=== PATIENT | female | born 1945 | race Caucasian/White ===

== ENCOUNTER 2016-11-24 11:57 | Outpatient (CLI) | payer MEDICARE, OTHER ==
--- NOTE | 2016-11-24 15:49 | MRI Report ---
EXAM: MRI LUMBAR SPINE WITHOUT CONTRAST EXAM DATE: 11/24/2016 01:17 PM. CLINICAL HISTORY: 71-year-old with low back pain and pain radiating to the bilateral legs COMPARISON: Lumbar radiograph 11/16/2016; CT abdomen and pelvis 01/13/2013. TECHNIQUE: Multiplanar, multisequence T1-weighted and fluid-sensitive sequences of the lumbar spine f rom T12 to S1 without contrast. Other: None. FINDINGS: Spinal Cord: The conus terminates at L1-L2. No signal abnormality in the visualized spinal cord. 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 Alignment: Grade 1 retrolisthesis of L4 on L5 and L5 on S1. Grade 1 anterolisthesis of L3 on L4. Bone Marrow: Five [id number]-ttwoayi lumbar vertebral bodies are assumed. Mild endplate degenerative darío nge, Schmorl's node formation, moderate loss of disk height, and disk desiccation seen at L4-L5 and L 5-S1. The remaining lumbar levels demonstrate minimal endplate degenerative change, Schmorl's node fo rmation, minimal loss of disk height, and disk desiccation. No acute fracture. Minimal endplate edema seen at T12-L1, L4-L5, and L5-S1 that is likely degenerative in nature. No definite marrow replacing lesion. Disk Levels/Facets: T12-L1: Small posterior disk bulge and minimal bilateral arthritic facet disease. No significant spin al canal stenosis or neural foraminal narrowing. L1-L2: Small posterior disk bulge, ligamentum flavum thickening, arthritic facet disease, and promine nt dorsal epidural fat. Minimal spinal canal stenosis. No significant neural foraminal narrowing. L2-L3: Small posterior disk bulge, ligamentum flavum thickening, arthritic facet disease, and promine nt dorsal epidural fat. Minimal spinal canal stenosis. Minimal bilateral neural foraminal narrowing, greater on the left. L3-L4: Small posterior disk bulge, ligamentum flavum thickening, arthritic facet disease, and promine nt dorsal epidural fat. Mild to moderate spinal canal stenosis. Mild bilateral neural foraminal narro wing. L4-L5: Small posterior disk bulge with superimposed central to left paracentral disk protrusion. Liga mentum flavum thickening, arthritic facet disease, and prominent dorsal epidural fat. Moderate to sev ere spinal canal stenosis with effacement of the lateral recesses and mass effect on the traversing l eft L5 nerve root. Mild right and moderate left neural foraminal narrowing. L5-S1: Small central disk protrusion. Bilateral thick facet disease. Effacement of the lateral recess es. Mild bilateral neural foraminal narrowing. Musculature: Normal. No edema or fatty atrophy. Other: Right kidney inferior pole T2 hyperintense lesion measuring up to 2.7 cm (series 701, image 25 ). Finding likely represents renal cysts. Left kidney superior pole intermediate T2 signal intensity lesion measuring up to 1.4 cm (371, image 35) that is increased in size since CT abdomen and pelvis 1 . IMPRESSION: 1. Mild multilevel degenerative changes greatest at L4-L5 and L5-S1. L3-L4: Mild to moderate spinal canal stenosis. Mild bilateral neural foraminal narrowing. L4-L5: Moderate to severe spinal canal stenosis with effacement of the lateral recesses and mass effe ct on the traversing left L5 nerve root. Mild right and moderate left neural foraminal narrowing. L5-S1: Effacement of the lateral recesses. Mild bilateral neural foraminal narrowing. 2. Left kidney superior pole intermediate T2 signal intensity lesion measuring up to 1.4 cm that has increased in size since CT abdomen and pelvis 01/13/2013. Intermediate T2 signal hyperintensity is no t compatible with a simple renal cyst and finding may represent hemorrhagic cyst though other patholo gy is not entirely excluded. Consider CT or MR renal for further evaluation. Comment: The following findings are so common in adults without low back pain that while we report th eir presence, they must be interpreted with caution and in the context of the clinical situation. (Re bhanu Hamilton et al, Spine 2001) Prevalence of findings in patients without low back pain: Disk degeneration (any evidence): 92% Disk desiccation/T2 signal loss: 83% Disk height loss: 56% Disk bulge: 64% Disk protrusion: 32% Annular tear/high intensity zone: 38% [facility] Referring Provider Line: [phone] SITE ID: [id number]
== END 2016-11-24 11:58 | disposition home or self-care (01) ==
LOC: DI 11:57
PROVIDERS: ATTEND Orthopaedic Surgery
DX: M51.27 Other intervertebral disc displacement, lumbosacral region (principal); M47.9 Spondylosis, unspecified; R93.422 Abnormal radiologic findings on diagnostic imaging of left kidney
CPT/HCPCS: 72148

== ENCOUNTER 2017-02-28 11:44 | Outpatient (CLI) | payer MEDICARE, OTHER ==
--- NOTE | 2017-03-07 06:51 | Mammography Report ---
EXAM: Digital bilateral screening mammogram 02/28/2017. CLINICAL INDICATION: A 71-year-old with history of late childbearing, history of benign biopsy, for screening. COMPARISON: 12/2015, 11/2014, 08/2013, 08/2012, 08/2011, 07/2010, 07/2009. TECHNIQUE: Routine CC and MLO projections were obtained of the breasts. FINDINGS: The breasts again demonstrate heterogeneously dense fibroglandular parenchyma bilaterally. Coarse punctate, typically benign calcifications are present. No suspicious masses, clustered microcalcifications, or regions of architectural distortion are identified. IMPRESSION: Benign findings. RECOMMENDATIONS: Routine annual screening unless otherwise clinically indicated. BI-RADS category 2 - Benign findings. STANDARD QUALIFYING STATEMENTS 1. This examination was reviewed with the aid of Computed Aided Detection (CAD). 2. A negative x-ray report should not delay biopsy if a dominant or clinically suspicious mass is present. More than 5% of cancers are not identified by x-ray. 3. Dense breasts may obscure an underlying neoplasm. TD: 03/01/2017 19:56 CARINA
== END 2017-02-28 11:45 | disposition home or self-care (01) ==
LOC: DI.N 11:44
PROVIDERS: ATTEND Nurse Practitioner Gerontology
DX: Z12.31 Encounter for screening mammogram for malignant neoplasm of breast (principal)
CPT/HCPCS: 77067

== ENCOUNTER 2017-03-01 16:44 | Outpatient (CLI) | payer MEDICARE, OTHER ==
--- NOTE | 2017-03-02 10:07 | Ultrasound Report ---
EXAM: LEFT LOWER EXTREMITY VENOUS ULTRASOUND EXAM DATE: 03/01/2017 06:02 PM. CLINICAL HISTORY: Left lower extremity pain. Possible DVT. COMPARISON: None. TECHNIQUE: Real-time sonographic vascular imaging was performed by the manufacturer through the lower extremity utilizing both color-flow and Doppler spectral analysis. Multiple sales representative adding machines static fahad ges were saved for review. FINDINGS: Common Femoral Vein (CFV): Normal. CFV-GSV Junction: Normal. Profunda Femoral Vein (PFV): Normal. Femoral Vein (FV) Prox: Normal. Femoral Vein (FV) Mid: Normal. Femoral Vein (FV) Dist: Normal. Popliteal Vein: Normal. Posterior Tibial Veins: Normal. Peroneal Veins: Normal. Other: No popliteal cyst evident. Possible reactive left inguinal lymph node 1.1 cm short axis. IMPRESSION: 1. No DVT in the left lower extremity. [facility] Referring Provider Line: [phone] SITE ID: [id number]
== END 2017-03-01 16:45 | disposition home or self-care (01) ==
LOC: DI 16:44
PROVIDERS: ATTEND Family Medicine
DX: M79.605 Pain in left leg (principal)

== ENCOUNTER 2017-08-31 08:00 | Outpatient (CLI) | payer MEDICARE, OTHER ==
[2017-08-31 12:54] LABS: CALCIUM 9.2 mg/dL (8.5-10.3); CREATININE 0.9 mg/dL (0.4-1.0)
== END 2017-08-31 08:01 ==
LOC: LAB.N 08:00
PROVIDERS: ATTEND Family Medicine
DX: N28.89 Other specified disorders of kidney and ureter (principal); M48.061 Spinal stenosis, lumbar region without neurogenic claudication
CPT/HCPCS: 36415; 80048

== ENCOUNTER 2017-10-01 14:30 | Outpatient (CLI) | payer MEDICARE, OTHER ==
[2017-10-01] MEDS ORDERED: GADOBUTROL 10 MMOL/10 ML VIAL IVP ONE (15:13)
--- NOTE | 2017-10-02 10:20 | MRI Report ---
Procedure Date: 10/01/2017 Accession Number: [id number] / [id number] Procedure: MRI - Abdomen W/WO CPT Code: FULL RESULT: EXAM: MR ABDOMEN WITH AND WITHOUT CONTRAST (MR KIDNEYS) EXAM DATE: 10/01/2017 02:27 PM. CLINICAL HISTORY: Renal mass. COMPARISON: CT abdomen/pelvis with contrast 01/13/2013. TECHNIQUE: Multiplanar breath-hold T1, T2, and DWI sequences obtained through the kidneys and abdomen on an MR scanner. Images obtained before and after administration of 6 mL Gadavist intravenous contrast. Multiphase sequences obtained through the kidneys. Significant patient motion artifact. FINDINGS: Lung Bases: Unremarkable. Liver: The liver has normal size, morphology and signal. No evidence of mass or biliary dilatation. Gallbladder: The gallbladder is partially distended and appears normal with no wall thickening or stone. Pancreas: The pancreas appears normal with no mass or ductal dilatation. Spleen: The spleen appears normal. Kidneys: Right Kidney: The right kidney measures 8.9 cm in length on coronal series. There are a couple of tiny simple posterior right renal cysts. No suspicious mass or hydronephrosis. Left Kidney: The left kidney measures 8.9 cm in length on coronal series. A 1.3 cm partially exophytic posteromedial left upper renal cyst likely has a small amount of dependent hemorrhage. 2.7 cm left lower renal cyst is likely simple. No suspicious mass. Adrenals: The adrenal glands appear normal. Bowel: The small bowel and colon appear normal with no inflammation or obstruction. Retroperitoneum: The retroperitoneal structures appear normal with no mass or lymphadenopathy. Other: Normal. IMPRESSION: 1. A 1.3 cm posterior left upper renal cyst with small amount of dependent hemorrhage. 2. A 2.7 cm simple left lower renal cyst. 3. No suspicious renal mass. 4. Present exam had patient motion artifacts and was compared to abdominal CT 01/13/2013. If patient has had interval exams, correlation would be advised. [facility]
== END 2017-10-01 14:31 | disposition home or self-care (01) ==
LOC: DI 14:30
PROVIDERS: ATTEND Family Medicine
DX: Q61.02 Congenital multiple renal cysts (principal)
CPT/HCPCS: 74183; A9585

== ENCOUNTER 2017-11-15 08:00 | Outpatient (CLI) | payer MEDICARE, OTHER ==
[2017-11-15 13:37] LABS: BASOPHILS # (AUTO) 0.2 10^3/uL (0.0-0.1); BASOPHILS % (AUTO) 2.6 %; EOSINOPHILS # (AUTO) 0.2 10^3/uL (0.0-0.7); EOSINOPHILS % (AUTO) 3.9 %; HGB - HEMOGLOBIN 14.3 g/dL (12.0-16.0); LYMPHOCYTES # (AUTO) 2.5 10^3/uL (1.5-3.5); LYMPHOCYTES % (AUTO) 41.3 %; MEAN CORPUSCULAR HEMOGLOBIN 31.4 pg (27.0-31.0); MEAN CORPUSCULAR HGB CONC 34.4 g/dL (32.0-36.0); MEAN CORPUSCULAR VOLUME 91.4 fL (81.0-99.0); MEAN PLATELET VOLUME 8.3 fL (7.9-10.8); MONOCYTES # (AUTO) 0.4 10^3/uL (0.0-1.0); NEUTROPHILS # (AUTO) 2.7 10^3/uL (1.5-6.6); NEUTROPHILS % (AUTO) 45.2 %; PLT - PLATELET COUNT 326 10^3/uL (130-450); RED BLOOD COUNT 4.54 10^6/uL (4.20-5.40); RED CELL DISTRIBUTION WIDTH 13.9 % (12.0-15.0)
[2017-11-15 14:04] LABS: ALBUMIN 3.8 g/dL (3.2-5.5); ALBUMIN/GLOBULIN RATIO 1.3 (1.0-2.2); ALKALINE PHOSPHATASE 62 IU/L (42-121); ALT ALANINE AMINOTRANSFERASE 25 IU/L (10-60); AST ASPARTATE AMINOTRANSFERASE 23 IU/L (10-42); BILIRUBIN,TOTAL 0.7 mg/dL (0.2-1.0); BUN - BLOOD UREA NITROGEN 16 mg/dL (6-20); CALCIUM 9.3 mg/dL (8.5-10.3); CARBON DIOXIDE - CO2 27 mmol/L (21-32); CHLORIDE 106 mmol/L (101-111); CHOL/HDL RATIO 4.1 (<4.4); CHOLESTEROL 252 mg/dL; CREATININE 0.8 mg/dL (0.4-1.0); GFR - MDRD 71 (>89); GLUCOSE 108 mg/dL (70-100); HDL CHOLESTEROL 61 mg/dL; LDL CHOLESTEROL,CALCULATED 165 mg/dL; LDL/HDL RATIO 2.7 (<4.4); SODIUM 139 mmol/L (135-145); TOTAL PROTEIN 6.8 g/dL (6.7-8.2); VLDL CHOLESTEROL 26 mg/dL
== END 2017-11-15 08:01 | disposition home or self-care (01) ==
LOC: LAB.N 08:00
PROVIDERS: ATTEND Family Medicine
DX: R42 Dizziness and giddiness (principal); E78.4 Other hyperlipidemia; R03.0 Elevated blood-pressure reading, without diagnosis of hypertension
CPT/HCPCS: 36415; 80053; 80061; 83721; 84443; 85025

== ENCOUNTER → 2017-11-28 | Outpatient (CLI) | payer MEDICARE, OTHER ==
[2017-11-30 15:33] LABS: BILIRUBIN,URINE NEGATIVE (NEGATIVE); CLARITY,URINE CLEAR (CLEAR); GLUCOSE, URINE (UA) NEGATIVE (NEGATIVE); KETONES,URINE (UA) NEGATIVE (NEGATIVE); LEUKOCYTE ESTERASE, URINE NEGATIVE (NEGATIVE); NITRITE,URINE NEGATIVE (NEGATIVE); OCCULT BLOOD,URINE NEGATIVE (NEGATIVE); PH,URINE 6.5 PH (5.0-7.5); PROTEIN,URINE NEGATIVE (NEGATIVE); RBC,URINE 0-5 /HPF (0-5); SQUAMOUS EPITHELIAL CELL,UR FEW Squamous (<= Few); UROBILINOGEN,URINE 0.2 (NORMAL) E.U./dL (NORMAL)
[2017-11-30 15:34] LABS: BACTERIA,URINE Rare /HPF (None Seen)
== END ==
LOC: LAB.R 08:00
PROVIDERS: ATTEND Family Medicine
DX: R82.90 Unspecified abnormal findings in urine (principal)
CPT/HCPCS: 81001; 87086

== ENCOUNTER 2018-06-13 08:15 | Outpatient (CLI) | payer MEDICARE, OTHER ==
[2018-06-13 13:22] LABS: BASOPHILS # (AUTO) 0.1 10^3/uL (0.0-0.1); BASOPHILS % (AUTO) 2.1 %; EOSINOPHILS # (AUTO) 0.2 10^3/uL (0.0-0.7); EOSINOPHILS % (AUTO) 2.7 %; HGB - HEMOGLOBIN 14.4 g/dL (12.0-16.0); LYMPHOCYTES # (AUTO) 2.4 10^3/uL (1.5-3.5); LYMPHOCYTES % (AUTO) 35.2 %; MEAN CORPUSCULAR HEMOGLOBIN 31.3 pg (27.0-31.0); MEAN CORPUSCULAR VOLUME 91.8 fL (81.0-99.0); MONOCYTES # (AUTO) 0.5 10^3/uL (0.0-1.0); MONOCYTES % (AUTO) 7.9 %; NEUTROPHILS # (AUTO) 3.5 10^3/uL (1.5-6.6); NEUTROPHILS % (AUTO) 52.1 %; PLT - PLATELET COUNT 340 10^3/uL (130-450); RED CELL DISTRIBUTION WIDTH 13.8 % (12.0-15.0); WHITE BLOOD COUNT 6.7 x10^3/uL (4.8-10.8)
[2018-06-13 13:28] LABS: ALBUMIN 3.9 g/dL (3.2-5.5); ALBUMIN/GLOBULIN RATIO 1.3 (1.0-2.2); ALKALINE PHOSPHATASE 65 IU/L (42-121); ALT ALANINE AMINOTRANSFERASE 23 IU/L (10-60); AST ASPARTATE AMINOTRANSFERASE 23 IU/L (10-42); BILIRUBIN,TOTAL 0.8 mg/dL (0.2-1.0); BUN - BLOOD UREA NITROGEN 15 mg/dL (6-20); CALCIUM 9.3 mg/dL (8.5-10.3); CARBON DIOXIDE - CO2 26 mmol/L (21-32); CHLORIDE 103 mmol/L (101-111); CHOLESTEROL 247 mg/dL; CREATININE 0.8 mg/dL (0.4-1.0); GFR - MDRD 71 (>89); GLUCOSE 115 mg/dL (70-100); HDL CHOLESTEROL 62 mg/dL; LDL CHOLESTEROL,CALCULATED 158 mg/dL; LDL/HDL RATIO 2.5 (<4.4); SODIUM 138 mmol/L (135-145); TOTAL PROTEIN 6.8 g/dL (6.7-8.2); VLDL CHOLESTEROL 27 mg/dL
== END 2018-06-13 23:59 | disposition home or self-care (01) ==
LOC: LAB.N 08:15
PROVIDERS: ATTEND Nurse Practitioner
DX: I10 Essential (primary) hypertension (principal); E78.49 Other hyperlipidemia; Z12.11 Encounter for screening for malignant neoplasm of colon
CPT/HCPCS: 36415; 80053; 80061; 82274; 83721; 85025

== ENCOUNTER 2018-06-19 12:58 | Outpatient (CLI) | payer MEDICARE, OTHER | END 2018-06-19 12:59 | disposition home or self-care (01) | LOC: LAB.R 12:58 | PROVIDERS: ATTEND Nurse Practitioner | DX: I10 Essential (primary) hypertension (principal); Z12.11 Encounter for screening for malignant neoplasm of colon; E78.49 Other hyperlipidemia | CPT/HCPCS: 82274 ==

== ENCOUNTER 2018-06-21 14:08 | Outpatient (CLI) | payer MEDICARE, OTHER ==
--- NOTE | 2018-06-21 15:46 | Mammography Report ---
Reason: MAMMOGRAPHIC SCREENING FOR BREAST CANCER Procedure Date: 06/21/2018 Accession Number: [id number] / [id number] Procedure: MGN - Screening Mammo Dig Bilat CPT Code: FULL RESULT: EXAM: Screening Mammo Dig Bilat DATE: 06/21/2018 2:31 PM CLINICAL HISTORY: Routine screening. No reported personal or family history of breast cancer. TECHNIQUE: (B) - Bilateral CC and MLO views were obtained. COMPARISON: 02/28/2017 through 09/03/2013 PARENCHYMAL PATTERN: (D) - The breasts demonstrate heterogeneously dense fibroglandular parenchyma bilaterally. FINDINGS: Bilateral breasts: There are no suspicious masses, calcifications, or areas of distortion. IMPRESSION: Negative examination. BI-RADS category1 RECOMMENDATION: (ANNUAL) - Recommend routine annual screening mammography. BI-RADS CATEGORY: (1) - Negative STANDARD QUALIFYING STATEMENTS: 1. This examination was reviewed with the aid of Computer-Aided Detection (CAD). 2. A negative or benign imaging report should not preclude biopsy if clinically suspicious findings are present. 3. Dense breasts may obscure an underlying neoplasm. 4. This examination was reviewed without the aid of 3D breast imaging (tomosynthesis).
== END 2018-06-21 14:09 | disposition home or self-care (01) ==
LOC: DI.N 14:08
PROVIDERS: ATTEND Nurse Practitioner
DX: Z12.31 Encounter for screening mammogram for malignant neoplasm of breast (principal)
CPT/HCPCS: 77067

== ENCOUNTER 2018-07-18 09:50 | Outpatient (CLI) | payer MEDICARE, OTHER ==
--- NOTE | 2018-07-18 12:15 | DEXA Report ---
Reason: BONE DISORDER Procedure Date: 07/18/2018 Accession Number: [id number] / [id number] Procedure: DEX - Dexa Spine and/or Hip CPT Code: FULL RESULT: EXAM: Dexa Spine and/or Hip DATE: 07/18/2018 10:50 AM CLINICAL HISTORY: Follow-up osteopenia TECHNIQUE: Dual energy x-ray absorptiometry (DXA) was performed on a [employer] System. Regions measured are the AP Spine, femoral neck, and if needed forearm. COMPARISON: 08/04/2014 In accordance with the International Society for Clinical Densitometry (ISCD) guidelines, data from previous exams may be reanalyzed using current recommendations and techniques. This is done to allow a more accurate basis for comparison with the current study. FINDINGS: The data for the lumbar spine is as follows: BMD (g/cm/cm) T-SCORE Z-SCORE REGION L1 0.867 -2.2 -0.3 L2 0.976 -1.9 0.0 L3 1.150 -0.4 1.5 L4 1.275 0.6 2.5 TOTAL 1.089 -0.8 1.1 NOTE: All evaluable vertebrae are used for classification The data for the hip is as follows: BMD (g/cm/cm) T-SCORE Z-SCORE REGION Neck 0.995 -0.3 1.6 TOTAL 0.839 -1.3 0.4 NOTE: The femoral neck or total proximal femur, whichever is lowest, is used for classification. IMPRESSION: THE WHO CLASSIFICATION BASED ON THE INTERNATIONAL REFERENCE STANDARD IS OSTEOPENIA (REFERENCE LEFT HIP TOTAL). THE FRACTURE RISK IS INCREASED. RECOMMENDATION: Patients with diagnosis of osteoporosis or osteopenia should have regular bone mineral density assessment. For those eligible for Medicare, routine testing is allowed once every 2 years. Testing frequency can be increased for patients who have rapidly progressing disease or for those who are receiving medical therapy to restore bone mass. COMMENT: World Health Organization (WHO) definitions for osteoporosis and osteopenia: NORMAL BMD: T-score at -1.0 or higher, fracture risk is low OSTEOPENIA BMD: T-score between -1.0 and -2.5, fracture risk is increased. OSTEOPOROSIS BMD: T-score at -2.5 or lower, fracture risk is high. National Osteoporosis Foundation recommends: 1. Obtain adequate dietary calcium (at least 1200 mg per day) and vitamin D (400-800 international units per day). 2. Participate, as appropriate, in regular weightbearing and muscle-strengthening exercise. 3. Avoid tobacco use and reduce alcohol and caffeine intake. 4. For more detailed information see the website at www.NOF.org.
== END 2018-07-18 09:51 | disposition home or self-care (01) ==
LOC: DI 09:50
PROVIDERS: ATTEND Nurse Practitioner
DX: M85.88 Other specified disorders of bone density and structure, other site (principal)
CPT/HCPCS: 77080

== ENCOUNTER 2019-05-08 10:26 | Outpatient (CLI) | payer MEDICARE, OTHER ==
[2019-05-08 12:09] LABS: BASOPHILS # (AUTO) 0.2 10^3/uL (0.0-0.1); BASOPHILS % (AUTO) 2.2 %; EOSINOPHILS # (AUTO) 0.2 10^3/uL (0.0-0.7); EOSINOPHILS % (AUTO) 2.3 %; HGB - HEMOGLOBIN 14.5 g/dL (12.0-16.0); LYMPHOCYTES # (AUTO) 2.5 10^3/uL (1.5-3.5); LYMPHOCYTES % (AUTO) 33.7 %; MEAN CORPUSCULAR HEMOGLOBIN 30.7 pg (27.0-31.0); MEAN CORPUSCULAR HGB CONC 32.7 g/dL (32.0-36.0); MEAN CORPUSCULAR VOLUME 94.1 fL (81.0-99.0); MEAN PLATELET VOLUME 9.8 fL (7.9-10.8); MONOCYTES # (AUTO) 0.5 10^3/uL (0.0-1.0); MONOCYTES % (AUTO) 7.2 %; NEUTROPHILS % (AUTO) 54.2 %; PLT - PLATELET COUNT 395 10^3/uL (130-450); RED BLOOD COUNT 4.72 10^6/uL (4.20-5.40); RED CELL DISTRIBUTION WIDTH 13.6 % (12.0-15.0); WHITE BLOOD COUNT 7.4 x10^3/uL (4.8-10.8)
[2019-05-08 12:31] LABS: ALBUMIN/GLOBULIN RATIO 1.2 (1.0-2.2); ALKALINE PHOSPHATASE 70 IU/L (42-121); ALT ALANINE AMINOTRANSFERASE 21 IU/L (10-60); AST ASPARTATE AMINOTRANSFERASE 23 IU/L (10-42); BILIRUBIN,TOTAL 0.5 mg/dL (0.2-1.0); BUN - BLOOD UREA NITROGEN 14 mg/dL (6-20); CALCIUM 9.7 mg/dL (8.5-10.3); CARBON DIOXIDE - CO2 28 mmol/L (21-32); CHLORIDE 103 mmol/L (101-111); CHOL/HDL RATIO 3.9 (<4.4); CHOLESTEROL 258 mg/dL; CREATININE 0.8 mg/dL (0.4-1.0); GFR - MDRD 70 (>89); GLUCOSE 110 mg/dL (70-100); HDL CHOLESTEROL 67 mg/dL; LDL CHOLESTEROL,CALCULATED 160 mg/dL; LDL/HDL RATIO 2.4 (<4.4); SODIUM 139 mmol/L (135-145); TOTAL PROTEIN 7.4 g/dL (6.7-8.2); VLDL CHOLESTEROL 31 mg/dL
[2019-05-08 12:37] LABS: HB2 TOTAL 14.7 g/dL; HEMOGLOBIN A1C 0.71 g/dL; HEMOGLOBIN A1C % 6.6 % (4.6-6.2)
== END 2019-05-08 23:59 | disposition home or self-care (01) ==
LOC: LAB.N 10:26
PROVIDERS: ATTEND Family Medicine
DX: I10 Essential (primary) hypertension (principal); M85.80 Other specified disorders of bone density and structure, unspecified site; E78.6 Lipoprotein deficiency; E78.5 Hyperlipidemia, unspecified
CPT/HCPCS: 36415; 80053; 80061; 82306; 83036; 83721; 84443; 85025

== ENCOUNTER 2019-05-28 11:57 | Outpatient (CLI) | payer MEDICARE, OTHER ==
--- NOTE | 2019-05-29 10:21 | Ultrasound Report ---
Reason: CLAUDICATION BILATERAL Procedure Date: 05/28/2019 Accession Number: [id number] / [id number] Procedure: US - Ankle Brachial Index CPT Code: Final Report FULL RESULT: EXAM: BILATERAL ANKLE/BRACHIAL INDEX EXAM DATE: 05/28/2019 01:03 PM. CLINICAL HISTORY: CLAUDICATION BILATERAL. COMPARISON: None. TECHNIQUE: A blood pressure cuff and pulse volume recording Doppler ultrasound was used to evaluate the arterial pressures in the arms and ankle. No images were acquired. FINDINGS: Brachial pressure: Right brachial artery: 164 Left brachial artery: 159 Right ankle pressures: Posterior tibial artery: 140 Dorsalis pedis artery: 140 Left ankle pressures: Posterior tibial artery: 160 Dorsalis pedis artery: 130 IMPRESSION: 1. Right ankle/brachial index: 0.85. 2. Left ankle/brachial index: 0.98. ANKLE/BRACHIAL INDEX REFERENCE STANDARDS 1.0-1.4: Normal 0.90-0.99: Borderline < 0.9: Abnormal [facility]
== END 2019-05-28 11:58 | disposition home or self-care (01) ==
LOC: DI 11:57
PROVIDERS: ATTEND Family Medicine
DX: I73.9 Peripheral vascular disease, unspecified (principal)
CPT/HCPCS: 93922

== ENCOUNTER 2019-09-04 08:00 | Outpatient (CLI) | payer MEDICARE, OTHER ==
[2019-09-04 12:24] LABS: CHOL/HDL RATIO 4.5 (<4.4); CHOLESTEROL 265 mg/dL; HDL CHOLESTEROL 59 mg/dL; LDL CHOLESTEROL,CALCULATED 175 mg/dL; VLDL CHOLESTEROL 31 mg/dL
== END 2019-09-04 23:59 | disposition home or self-care (01) ==
LOC: LAB.WCP 08:00
PROVIDERS: ATTEND Family Medicine
DX: E78.5 Hyperlipidemia, unspecified (principal)
CPT/HCPCS: 36415; 80061; 83721

== ENCOUNTER 2020-06-08 07:00 | Outpatient (CLI) | payer MEDICARE, OTHER ==
[2020-06-08 12:03] LABS: BASOPHILS # (AUTO) 0.2 10^3/uL (0.0-0.1); EOSINOPHILS # (AUTO) 0.2 10^3/uL (0.0-0.7); EOSINOPHILS % (AUTO) 2.3 %; HCT - HEMATOCRIT 45.5 % (37.0-47.0); HGB - HEMOGLOBIN 14.8 g/dL (12.0-16.0); LYMPHOCYTES # (AUTO) 2.3 10^3/uL (1.5-3.5); LYMPHOCYTES % (AUTO) 31.4 %; MEAN CORPUSCULAR HEMOGLOBIN 30.3 pg (27.0-31.0); MEAN CORPUSCULAR HGB CONC 32.5 g/dL (32.0-36.0); MEAN PLATELET VOLUME 9.8 fL (7.9-10.8); MONOCYTES # (AUTO) 0.6 10^3/uL (0.0-1.0); MONOCYTES % (AUTO) 7.5 %; NEUTROPHILS # (AUTO) 4.2 10^3/uL (1.5-6.6); NEUTROPHILS % (AUTO) 56.4 %; PLT - PLATELET COUNT 393 10^3/uL (130-450); RED BLOOD COUNT 4.89 10^6/uL (4.20-5.40); RED CELL DISTRIBUTION WIDTH 13.8 % (12.0-15.0); WHITE BLOOD COUNT 7.4 x10^3/uL (4.8-10.8)
[2020-06-08 12:23] LABS: ALBUMIN 4.3 g/dL (3.2-5.5); ALBUMIN/GLOBULIN RATIO 1.3 (1.0-2.2); ALKALINE PHOSPHATASE 78 IU/L (42-121); ALT ALANINE AMINOTRANSFERASE 19 IU/L (10-60); AST ASPARTATE AMINOTRANSFERASE 22 IU/L (10-42); BILIRUBIN,TOTAL 0.8 mg/dL (0.2-1.0); BUN - BLOOD UREA NITROGEN 19 mg/dL (6-20); CALCIUM 9.7 mg/dL (8.5-10.3); CARBON DIOXIDE - CO2 24 mmol/L (21-32); CHLORIDE 104 mmol/L (101-111); CHOL/HDL RATIO 3.9 (<4.4); CHOLESTEROL 256 mg/dL; CREATININE 0.9 mg/dL (0.4-1.0); GFR - MDRD 61 (>89); GLUCOSE 138 mg/dL (70-100); HDL CHOLESTEROL 66 mg/dL; LDL CHOLESTEROL,CALCULATED 160 mg/dL; LDL/HDL RATIO 2.4 (<4.4); POTASSIUM 4.1 mmol/L (3.5-5.0); SODIUM 138 mmol/L (135-145); TOTAL PROTEIN 7.6 g/dL (6.7-8.2); TRIGLYCERIDES 152 mg/dL; VLDL CHOLESTEROL 30 mg/dL
[2020-06-08 12:29] LABS: ESTIMATED AVERAGE GLUCOSE 131 mg/dL (70-100); HEMOGLOBIN A1c% 6.2 % (4.27-6.07)
[2020-06-08 12:33] LABS: THYROID STIMULATING HORMONE 4.14 uIU/mL (0.34-5.60)
== END 2020-06-08 23:59 | disposition home or self-care (01) ==
LOC: LAB.WCP 07:00
PROVIDERS: ATTEND Nurse Practitioner Family
DX: E78.5 Hyperlipidemia, unspecified (principal); E11.9 Type 2 diabetes mellitus without complications
CPT/HCPCS: 36415; 80053; 80061; 83036; 83721; 84443; 85025

== ENCOUNTER 2020-08-19 08:36 | Outpatient (CLI) | payer MEDICARE, OTHER ==
--- NOTE | 2020-08-20 11:57 | Mammography Report ---
BILATERAL DIGITAL SCREENING MAMMOGRAM 3D/2D: 08/19/2020 CLINICAL: Routine screening. Comparison is made to exams dated: 06/21/2018 mammogram, 02/28/2017 mammogram, 01/13/2016 mammogram, mammogram, 09/03/2013 mammogram, and 08/28/2012 mammogram - [facility]. The tissue of both breasts is heterogeneously dense. This may lower the sensitivity of mammography. No significant masses, calcifications, or other findings are seen in either breast. There has been no significant interval change. IMPRESSION: NEGATIVE There is no mammographic evidence of malignancy. A 1 year screening mammogram is recommended. This exam was interpreted at Station ID: [id number]. NOTE: For mammograms, a report in lay terms will be sent to the patient. Approximately 15% of breast malignancies will not be visualized mammographically. In the management of a palpable breast mass, a negative mammogram must not discourage biopsy of a clinically suspicious lesion. Electronically Signed By: Fernando Cardenas M.D. at/[email or web address]:08/19/2020 09:29:03 ACR BI-RADS Category 1: Negative 3341F PARENCHYMAL PATTERN: (D) - The breast(s) demonstrate(s) heterogeneously dense fibroglandular wendy jacome. BI-RADS CATEGORY: (1) - 1 RECOMMENDATION: (ANNUAL) - Recommend routine annual screening mammography. [id number] 1 year screening LATERALITY: (B)
== END 2020-08-19 08:37 | disposition home or self-care (01) ==
LOC: DI 08:36
DX: Z12.31 Encounter for screening mammogram for malignant neoplasm of breast (principal)

== ENCOUNTER 2020-12-30 09:46 | Outpatient (CLI) | payer MEDICARE, OTHER ==
[2020-12-30 12:19] LABS: ESTIMATED AVERAGE GLUCOSE 134 mg/dL (70-100); HEMOGLOBIN A1c% 6.3 % (4.27-6.07)
[2020-12-30 12:28] LABS: ALBUMIN 4.3 g/dL (3.2-5.5); ALBUMIN/GLOBULIN RATIO 1.3 (1.0-2.2); ALKALINE PHOSPHATASE 82 IU/L (42-121); ALT ALANINE AMINOTRANSFERASE 43 IU/L (10-60); AST ASPARTATE AMINOTRANSFERASE 36 IU/L (10-42); BILIRUBIN,TOTAL 0.8 mg/dL (0.2-1.0); BUN - BLOOD UREA NITROGEN 14 mg/dL (6-20); CALCIUM 9.9 mg/dL (8.5-10.3); CARBON DIOXIDE - CO2 28 mmol/L (21-32); CHLORIDE 101 mmol/L (101-111); CHOL/HDL RATIO 3.2 (<4.4); CHOLESTEROL 202 mg/dL; CREATININE 0.9 mg/dL (0.4-1.0); GFR - MDRD 61 (>89); GLUCOSE 124 mg/dL (70-100); HDL CHOLESTEROL 64 mg/dL; LDL CHOLESTEROL,CALCULATED 106 mg/dL; LDL/HDL RATIO 1.7 (<4.4); POTASSIUM 4.5 mmol/L (3.5-5.0); SODIUM 139 mmol/L (135-145); TOTAL PROTEIN 7.5 g/dL (6.7-8.2); TRIGLYCERIDES 158 mg/dL; VLDL CHOLESTEROL 32 mg/dL
[2020-12-30 12:35] LABS: CREATININE,URINE 196.2 mg/dL; MICROALBUM/CREATININE RATIO,UR 3.1 ug/mg (<30.0); MICROALBUMIN,URINE 0.6 mg/dL (0-300.0)
== END 2020-12-30 23:59 | disposition home or self-care (01) ==
LOC: LAB.WCP 09:46
PROVIDERS: ATTEND Physician Assistant Medical
DX: E11.9 Type 2 diabetes mellitus without complications (principal); E78.5 Hyperlipidemia, unspecified
CPT/HCPCS: 36415; 80053; 80061; 82043; 82570; 83036; 83721